=== PATIENT | female | born 1945 | race Caucasian/White ===

== ENCOUNTER 2016-08-28 21:22 | Emergency (ER) | payer MEDICARE ==
[2016-08-28] MEDS ORDERED: Ondansetron INJ* 2 MG/ML VIAL IV ONE (21:43)
[2016-08-28] MEDS ORDERED: NS 0.9% 1000 ML* 1,000 ML IV ONE (21:43)
--- NOTE | 2016-08-28 22:04 | ED ---
cayetano Escalante Timothy, scribed for Layton Meier MD on 08/28/16 at 2141 . Complex/Multi-Sys Presentation - HPI Summary HPI Summary: Cathy Sahu is a 70 yo female presenting to [facility] C/O general unwellness for the past few days. She states she feels like she needs to have a BM, but denies any abd pain. She is having a difficult time describing her Sx, but states she is queasy. She is concerned that she [place] far from the hospital, which is why she presented tonight. She states that she had a viral infection a few weeks ago , but all her Sx resolved. Her MHx includes Afib, diverticulitis, breast CA 2008 , lumpectomy, chemotherapy, radiation therapy. - History Of Current Complaint Time Seen by Provider: 08/28/16 21:39 Hx Obtained From: Patient Onset/Duration: Gradual Onset, Lasting Days, Still Present Timing: Constant Severity Currently: Moderate Severity Initially: Moderate Associated Signs And Symptoms: Positive: Nausea - "queasy", Other - hard to describe Sx, general unwellness, BM feeling without BM - Allergies/Home Medications Allergies/Adverse Reactions: Allergies Allergy/AdvReac Type Severity Reaction Status Date / Time No Known Allergies Allergy Verified 08/28/16 21:24 PMH/Surg Hx/FS Hx/Imm Hx Cardiovascular History: Reports: Hx Atrial Fibrillation GI History: Reports: Other GI Disorders - diverticulitis - Cancer History Cancer Type, Location and Year: breast CA 2008 Hx Chemotherapy: Yes Hx Radiation Therapy: Yes - Surgical History Surgery Procedure, Year, and Place: lumpectomy Infectious Disease History: No Infectious Disease History: Denies: Traveled Outside the [place] in Last 30 Days - Family History Known Family History: Positive: Cardiac Disease, Hypertension, Diabetes - Social History Alcohol Use: None Hx Substance Use: No Substance Use Type: Reports: None Hx Tobacco Use: Yes Smoking Status (MU): Former Smoker - 30 years ago Review of Systems Constitutional: Other - general unwellness Eyes: Negative ENT: Negative Cardiovascular: Negative Respiratory: Negative Positive: Nausea - "queasy", Other - feeling of BM, but no BM. Negative: Abdominal Pain Genitourinary: Negative Musculoskeletal: Negative Skin: Negative Neurological: Negative Psychological: Normal All Other Systems Reviewed And Are Negative: Yes Physical Exam Triage Information Reviewed: Yes Vital Signs On Initial Exam: Initial Vitals Temp Pulse Resp BP Pulse Ox 97.7 F 65 18 172/63 100 08/28/16 21:25 08/28/16 21:25 08/28/16 21:25 08/28/16 21:25 08/28/16 21:25 Vital Signs Reviewed: Yes Appearance: Positive: Well-Appearing, No Pain Distress Skin: Positive: Warm Head/Face: Positive: Normal Head/Face Inspection Eyes: Positive: GAVIN ENT: Positive: Hearing grossly normal Neck: Positive: Supple Respiratory/Lung Sounds: Positive: Clear to Auscultation, Breath Sounds Present Cardiovascular: Positive: RRR Abdomen Description: Positive: Nontender, No Organomegaly, Soft Bowel Sounds: Positive: Present Musculoskeletal: Positive: Strength/ROM Intact Neurological: Positive: Alert, Oriented to Person Place, Time Psychiatric: Positive: Affect/Mood Appropriate Diagnostics - Vital Signs Vital Signs Temp Pulse Resp BP Pulse Ox 08/28/16 21:25 97.7 F 65 18 172/63 100 - Laboratory Result Diagrams: 08/28/16 22:14 08/28/16 22:14 Lab Statement: Any lab studies that have been ordered have been reviewed, and results considered in the medical decision making process. - CT A/P CT Interpretation: No Acute Changes - Impression: Status post sigmoid surgery with small amount of retained stool seen in the capacious bowel anastomosis. This may be the source of the Pt's discomfort. No surrounding inflammatory changes are seen. 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 Pt medication list reviewed this visit. In the ED course she received zofran for nausea control and IV fluids. Her CT A/P suggests that she is status post sigmoid surgery with small amount of retained stool seen in the capacious bowel anastomosis. This may be the source of the Pt's discomfort. No surrounding inflammatory changes are seen. After clinical examination and review of her lab and imaging studies, she will be discharged home with constipation with appropriate instructions. - Diagnoses Provider Diagnoses: Constipation, Abdominal pain Discharge - Discharge Plan Condition: Stable Disposition: HOME Patient Education Materials: Constipation (ED) Referrals: Tashi Martinez MD [Primary Care Provider] - 2 Days Additional Instructions: Please follow up with your primary care physician regarding your visit to the emergency department tonight. Return to the emergency department with any new or recurring symptoms. The documentation as recorded by the cayetano thorne Timothy accurately reflects the service I personally performed and the decisions made by me, Layton Meier MD.
[2016-08-28 22:21] LABS: Hematocrit 38 % (35-47); Mean Corpuscular HGB Conc 34 g/dl (31-36); Mean Corpuscular Hemoglobin 33 pg (27-31); Mean Corpuscular Volume 95 fL (80-97); Mean Platelet Volume 8 um3 (7.4-10.4); Red Blood Count 3.98 10^6/ul (4.0-5.4); Red Cell Distribution Width 13 % (10.5-15); White Blood Count 7.7 10^3/ul (3.5-10.8)
[2016-08-28 22:36] LABS: Albumin 3.9 g/dL (3.2-5.2); C Reactive Protein 1.22 mg/L (< 5.00); Calcium 9.5 mg/dL (8.6-10.3); EGFR African American 81.5 (>60); EGFR Non-African American 63.3 (>60); Globulin 3.2 g/dL (2-4); Total Bilirubin 0.4 mg/dL (0.2-1.0); Total Protein 7.1 g/dL (6.4-8.9)
[2016-08-28 22:38] LABS: Potassium 3.7 mmol/L (3.5-5.0)
[2016-08-28 23:17] LABS: Urine Bilirubin Negative (Negative); Urine Glucose Negative (Negative); Urine Nitrite Negative (Negative)
[2016-08-28] MEDS ORDERED: Iohexol 300* (CONTRAST) 10 ML SDV IV ONE (23:53)
[2016-08-29] MEDS ORDERED: Magnesium CITRATE* 300 ML BTL PO ONE (00:37)
[2016-08-29 01:02] VITALS: BP 144/65
--- NOTE | 2016-08-29 07:43 | RAD ---
CLINICAL HISTORY: Abdominal pain, history of obstruction COMPARISON: None TECHNIQUE: Multiple contiguous axial CT scans were obtained of the abdomen and pelvis after the administration of intravenous contrast. Coronal and sagittal multiplanar reformations are submitted for review. Oral contrast was administered. Delayed images were obtained through the abdomen and pelvis. FINDINGS: LUNG BASES: The lung bases are clear. LIVER: There are multiple low-attenuation hepatic parenchymal lesions. The largest measure simple fluid in attenuation consistent with simple cysts. The others are too small to definitively characterize. BILE DUCTS: There is no intrahepatic or extrahepatic biliary dilatation. GALLBLADDER: The gallbladder is normal, without pericholecystic inflammatory change. PANCREAS: The pancreas is normal, without mass or ductal dilatation. SPLEEN: Normal in size and appearance. UPPER GI TRACT: Evaluation of the gastrointestinal tract is limited by incomplete gastric distention. The upper GI tract is unremarkable. SMALL BOWEL AND MESENTERY: The small bowel is normal in contour, course, and caliber. There is no obstruction or dilatation. COLON: There is post surgical change of the sigmoid colon which is patulous. There is a moderate amount of stool within the distal colon. ADRENALS: Normal bilaterally. KIDNEYS: The kidneys are normal in shape, size, contour, and axis. There is no hydronephrosis or nephrolithiasis. BLADDER: The bladder is smooth in contour. PELVIC ORGANS: The pelvic organs are not visualized. AORTA: There is calcific atherosclerotic disease of the abdominal aorta and its branches, without aneurysmal dilatation IVC: Unremarkable LYMPH NODES: There is no lymphadenopathy by size criteria. ABDOMINAL WALL: There is no evidence for abdominal wall hernia. BONES AND SOFT TISSUES: There are mild diffuse degenerative changes. OTHER: None IMPRESSION: 1. POSTSURGICAL CHANGE. 2. MULTIPLE LOW-ATTENUATION HEPATIC PARENCHYMAL LESIONS. THE LARGEST ARE CONSISTENT WITH SIMPLE CYSTS. THESE ARE TOO SMALL TO DEFINITIVELY CHARACTERIZE
== END 2016-08-29 01:01 | disposition home or self-care (01) ==
LOC: ED 21:22
DX: K59.00 Constipation, unspecified (principal); R10.9 Unspecified abdominal pain
CPT/HCPCS: 36415; 74177; 80053; 81003; 83605; 83690; 83735; 85025; 86140; 99283; A9270-GY; J2405; Q9967

== ENCOUNTER 2017-07-15 21:13 | Emergency (ER) | payer MEDICARE ==
[2017-07-15 21:51] VITALS: BP 165/88
--- NOTE | 2017-07-16 00:57 | ED ---
Louie Escalante Stephanie, scribed for Segun Soria MD on 07/15/17 at 2146 . Complex/Multi-Sys Presentation - History Of Current Complaint Chief Complaint: EDHypertension Time Seen by Provider: 07/15/17 21:42 Hx Obtained From: Patient Onset/Duration: Gradual Onset, Lasting Hours, Still Present Timing: Constant Severity Currently: Mild Aggravating Factor(s): stress Alleviating Factor(s): nothing Associated Signs And Symptoms: Positive: Nausea, Abdominal Pain, Other - abd bloating. Negative: Vomiting, Diarrhea, Dysuria - Allergies/Home Medications Allergies/Adverse Reactions: Allergies Allergy/AdvReac Type Severity Reaction Status Date / Time No Known Allergies Allergy Verified 08/28/16 21:24 PMH/Surg Hx/FS Hx/Imm Hx Endocrine/Hematology History: Denies: Hx Diabetes Cardiovascular History: Reports: Hx Atrial Fibrillation Denies: Hx Hypertension GI History: Reports: Other GI Disorders - diverticulitis History: Denies: Hx Renal Disease EENT History: Denies: Hx Deafness - Cancer History Cancer Type, Location and Year: breast CA 2008 Hx Chemotherapy: Yes Hx Radiation Therapy: Yes - Surgical History Surgery Procedure, Year, and Place: lumpectomy Infectious Disease History: Yes Infectious Disease History: Denies: Traveled Outside the [place] in Last 30 Days - Family History Known Family History: Positive: Cardiac Disease, Hypertension, Diabetes - Social History Occupation: Retired Lives: With Family Alcohol Use: None Hx Substance Use: No Substance Use Type: Reports: None Hx Tobacco Use: Yes Smoking Status (MU): Former Smoker - 30 years ago Review of Systems Negative: Fever Positive: Abdominal Pain, Nausea. Negative: Vomiting, Diarrhea Negative: dysuria Positive: Other - stressed All Other Systems Reviewed And Are Negative: Yes Physical Exam - Summary Physical Exam Summary: Appearance: Well-appearing, Well-nourished, lying in bed comfortably Skin: Warm, dry, no obvious rash Eyes: sclera anicteric, no conjunctiva pallor ENT: mucous membranes moist, pharynx appears normal Neck: Supple, nontender Respiratory: Clear to auscultation, no signs of respiratory distress Cardiovascular: Normal S1, S2. No murmurs. Normal distal pulses in tibial and radial bilaterally. Abdomen: Soft, nontender, normal active bowel sounds present Musculoskeletal: Normal, Strength/ROM Intact Neurological: A&Ox3, awake and alert, mentation is normal, speech is fluent and appropriate Psychiatric: affect is normal, does not appear anxious or depressed Triage Information Reviewed: Yes Vital Signs On Initial Exam: Initial Vitals Temp Pulse Resp BP Pulse Ox 98.1 F 65 18 160/89 100 07/15/17 21:17 07/15/17 21:17 07/15/17 21:17 07/15/17 21:17 07/15/17 21:17 Vital Signs Reviewed: Yes Diagnostics - Vital Signs Vital Signs Temp Pulse Resp BP Pulse Ox 07/15/17 21:17 98.1 F 65 18 160/89 100 - Laboratory Lab Statement: Any lab studies that have been ordered have been reviewed, and results considered in the medical decision making process. Complex Multi-Symp Course/Dx - Diagnoses Provider Diagnoses: Hypertension, Abdominal pain Discharge - Sign-Out/Discharge Documenting (check all that apply): Discharge/Admit/Transfer - Discharge Plan Condition: Good Disposition: HOME Patient Education Materials: Chronic Hypertension (ED), Gas and Bloating (ED) Referrals: Tashi Martinez MD [Primary Care Provider] - - Billing Disposition and Condition Condition: GOOD Disposition: HOME The documentation as recorded by the Louie thorne Stephanie accurately reflects the service I personally performed and the decisions made by , Segun Soria MD.
== END 2017-07-15 21:55 | disposition home or self-care (01) ==
LOC: ED 21:13
DX: I10 Essential (primary) hypertension (principal); R10.9 Unspecified abdominal pain; R14.0 Abdominal distension (gaseous); R11.0 Nausea; Z85.3 Personal history of malignant neoplasm of breast; Z87.891 Personal history of nicotine dependence
CPT/HCPCS: 99282